=== PATIENT | male | born 1995 | race Caucasian/White ===

== ENCOUNTER 2018-11-16 08:03 | Emergency (ER) | payer SELFPAY ==
[~2018-11-16] VITALS: Ht 188 cm; Wt 76.7 kg
--- OUTSIDE RECORDS SUMMARY | 2018-11-16 08:09 | XMS REPORT | Continuity of Care Document ---
Author Organization Unknown Address Unknown Allergies There is no data. Medications There is no data. Problems There is no data. Procedures There is no data. Results There is no data. Encounters ACCT No. Visit Date/Time Discharge Status Pt. Type Provider Facility Loc./Unit Complaint [id number] 11/16/2018 07:10:00 ACT Outpatient BAKARI WANG [facility] IN [facility]
--- NOTE | 2018-11-16 08:27 | ED Integumentary General ---
General Chief Complaint: Skin/Wound Problems Stated Complaint: PT SAYS HE HAS AN INFECTED HAIR ON HIS FACE Nursing Triage Note: PT REPORTS HE HAS AN INFECTED HAIR ON THE LEFT LOWER SIDE OF HIS JAW. HX OF MRSA. Source: patient Exam Limitations: no limitations History of Present Illness Date Seen by Provider: Nov 16, 2018 Time Seen by Provider: 08:21 Initial Comments Patient complains of infected joiner hair left jaw for 2-3 days. It was draining pus but not anymore. He was seen at urgent care clinic and referred here. Allergies and Home Medications Home Medications Sulfamethoxazole/Trimethoprim 1 Each Tablet, 1 EACH PO BID Prescribed by: MARIBETH BRADSHAW on 11/16/18 0831 Patient Home Medication List Home Medication List Reviewed: Yes Review of Systems Review of Systems Constitutional: no symptoms reported Respiratory: no symptoms reported Cardiovascular: no symptoms reported Musculoskeletal: no symptoms reported Skin: see HPI All Other Systems Reviewed Negative Unless Noted: Yes Past Nlxckbg-Fubihc-Codoha Hx Patient Social History Alcohol Use: Rarely Uses Recreational Drug Use: No Smoking Status: Never a Smoker 2nd Hand Smoke Exposure: No Recent Foreign Travel: No Contact w/Someone Who Travel: No Recent Infectious Disease Expo: No Recent Hopitalizations: No Physical Abuse: No Sexual Abuse: No Mistreated: No Fear: No Seasonal Allergies Seasonal Allergies: No Past Medical History Surgeries: No Respiratory: No Cardiac: No Neurological: No Genitourinary: No Gastrointestinal: No Musculoskeletal: No Endocrine: No HEENT: No Cancer: No Psychosocial: No Integumentary: No Blood Disorders: No Physical Exam Vital Signs Vital Signs - First Documented 11/16/18 11/16/18 08:14 08:32 Temp 98.0 Pulse 85 Resp 18 B/P (MAP) 144/58 (86) Pulse Ox 98 O2 Delivery Room Air Capillary Refill : Less Than 3 Seconds General Appearance: WD/WN, no apparent distress Neck: supple Cardiovascular: regular rate, rhythm Respiratory: lungs clear Extremities: normal range of motion Neurologic/Psychiatric: alert, normal mood/affect Skin: normal color, warm/dry, other (tender red indurated mass left lower jaw.) Procedures/Interventions I&D : Site: left lower jaw Blade Size: 11 Progress Area of maximum fluctuance was anesthetized with one percent lidocaine. A small stab incision with an 11 blade needle yielded 2-3 mL of pus. Progress/Results/Core Measures Results/Orders Vital Signs/I&O 11/16/18 11/16/18 08:14 08:32 Temp 98.0 98.0 Pulse 85 85 Resp 18 18 B/P (MAP) 144/58 (86) 144/54 (84) Pulse Ox 98 O2 Delivery Room Air Room Air Blood Pressure Mean: 86 Departure Impression Primary Impression: Abscess Disposition: 01 HOME, SELF-CARE Condition: Stable Departure-Patient Inst. Decision time for Depature: 08:30 Referrals: NO,LOCAL PHYSICIAN (PCP) Primary Care Physician Patient Instructions: Abscess Incision and Drainage (DC) Add. Discharge Instructions: Warm compresses to the chin. Take antibiotics as prescribed. All discharge instructions reviewed with patient and/or family. Voiced understanding. Scripts Sulfamethoxazole/Trimethoprim (Bactrim Ds Tablet) 1 Each Tablet 1 EACH PO BID, #14 TAB Prov: MARIBETH BRADSHAW MD 11/16/18 MARIBETH BRADSHAW MD Nov 16, 2018 08:27
[2018-11-16] MEDS ORDERED: SULF1TAB35 PO (08:31)
[2018-11-16 08:32] VITALS: BP 144/54
== END 2018-11-16 08:32 | disposition home or self-care (01) ==
LOC: EDUNIT# 08:03 → ER FS 08:06
DX: L02.01 Cutaneous abscess of face (principal)
CPT/HCPCS: 99282

== ENCOUNTER 2019-02-23 09:36 | Emergency (ER) | payer SELFPAY, OTHER | END 2019-02-23 10:19 | disposition home or self-care (01) | LOC: ER FS 09:36 ==

== ENCOUNTER 2019-11-11 01:01 | Emergency (ER) | payer SELFPAY ==
[~2019-11-11] VITALS: Ht 188 cm; Wt 63.5 kg
[~2019-11-11 01:01] MED LIST: SULF1TAB35 PO
--- OUTSIDE RECORDS SUMMARY | 2019-11-11 01:10 | XMS REPORT | Continuity of Care Document ---
Author Organization Unknown Address Unknown Phone Unavailable Allergies Active Description Code Type Severity Reaction Onset Reported/Identified Relationship to Patient Clinical Status Yes amoxicillin [id number] Drug Aller gy Mild rash 02/23/2019 Yes No Allergy Information Available [id number] Drug Allergy Unknown N/A 019 Medications There is no data. Problems Date Dx Coded Attending Type Code Diagnosis Diagnosed By 11/16/2018 LEEANN LUI, MARIBETH Kinney Ot L02. 01 CUTANEOUS ABSCESS OF FACE 11/21/2018 MARIBETH BRADSHAW MD Ot L02. 01 CUTANEOUS ABSCESS OF FACE Procedures There is no data. Results There is no data. Encounters ACCT No. Visit Date/Time Discharge Status Pt. Type Provider Facility Loc./Unit Complaint [id number] 11/16/2018 07:10:00 11/16/2018 23:59: 59 CLS [facility] [id number] 02/23/2019 09:36:00 019 10:19:00 DIS Emergency YASMIN LUI, MILES Leo [facility] ER FS RT FOOT MARYJANE N [id number] 11/16/2018 08:06:00 019 08:32:00 DIS Emergency MARIBETH BRADSHAW MD [facility] ER FS PT SAYS HE HAS AN INFEC JOSÉ LUIS HAIR ON HIS FACE
[2019-11-11 01:15] VITALS: BP 122/77
[2019-11-11] MEDS ORDERED: AMOX-358 PO (01:28)
--- NOTE | 2019-11-11 01:29 | ED Integumentary General ---
General Chief Complaint: Bite-Animal/Human/Insect Stated Complaint: DOG BITE TO RIGHT HAND Nursing Triage Note: PT AMBULATE TO ROOM FS01 WITH C/O DOG BITE. PT STATES HE WAS BITTEN BY HIS OWN DOG AND THAT THE DOG IS CURRENT ON ALL VACCINATIONS. Source: patient Exam Limitations: no limitations History of Present Illness Date Seen by Provider: Nov 11, 2019 Time Seen by Provider: 01:20 Initial Comments 24-year-old male presents with a dog bite to the base of his right thumb. Patient reports that after around 8 PM in the evening. Patient has not injuries. Patient reports a dog is up-to-date and current on vaccinations. Patient's last tetanus was about a year and a half ago. Patient has 2 small puncture wounds otherwise no other injury. He has full range of motion of the thumb. Allergies and Home Medications Allergies Coded Allergies: amoxicillin (Unverified Adverse Reaction, Mild, rash, 02/23/19) Obtained from [employer] records Home Medications Amoxicillin/Potassium Clav 1 Each Tablet, 1 EACH PO BID Prescribed by: PADMINI TORRES on 11/11/19 0128 Patient Home Medication List Home Medication List Reviewed: Yes Review of Systems Review of Systems Constitutional: no symptoms reported EENTM: no symptoms reported Respiratory: no symptoms reported Cardiovascular: no symptoms reported Genitourinary: no symptoms reported Musculoskeletal: see HPI Skin: see HPI Past Eysqpoj-Hzcvrb-Ezrjrq Hx Past Med/Social Hx: Reviewed Nursing Past Med/Soc Hx Patient Social History Alcohol Use: Rarely Uses Recreational Drug Use: No Type Used: Cigarettes, Smokeless Tobacco Former Smoker, Quit: Dec 03, 2016 2nd Hand Smoke Exposure: No Recent Foreign Travel: No Contact w/Someone Who Travel: No Recent Infectious Disease Expo: No Recent Hopitalizations: No Physical Abuse: No Sexual Abuse: No Mistreated: No Fear: No Immunizations Up To Date Tetanus Booster (TDap): Less than 5yrs Seasonal Allergies Seasonal Allergies: No Past Medical History Surgeries: No Respiratory: Yes Asthma Cardiac: No Neurological: No Sexually Transmitted Disease: Yes (Exposure to Herpes, Hx Trichomonas) Genitourinary: No Gastrointestinal: No Musculoskeletal: No Endocrine: No HEENT: No Cancer: No Psychosocial: Yes ADD/ADHD Integumentary: No Blood Disorders: No Physical Exam Vital Signs Vital Signs - First Documented 11/11/19 01:15 Temp 36.4 Pulse 85 Resp 18 B/P (MAP) 122/77 (92) O2 Delivery Room Air Capillary Refill : Less Than 3 Seconds General Appearance: WD/WN, no apparent distress Cardiovascular: normal peripheral pulses, regular rate, rhythm Respiratory: no respiratory distress, no accessory muscle use Gastrointestinal: non tender, soft Neurologic/Psychiatric: alert, normal mood/affect, oriented x 3 Skin Problem Location: upper extremities (right hand base of the thumb) Skin Problem Character: other (two nonsuturable puncture wound) Progress/Results/Core Measures Results/Orders My Orders Orders - TYLER TORRESR L DO Hand 2 View Right (11/11/19 01:22) Vital Signs/I&O 11/11/19 01:15 Temp 36.4 Pulse 85 Resp 18 B/P (MAP) 122/77 (92) O2 Delivery Room Air Blood Pressure Mean: 92 Diagnostic Imaging Diagonstic Imaging: Xray Plain Films/CT/US/NM/MRI: hand Comments no acute finding Reviewed: Reviewed by Me Departure Impression Primary Impression: Dog bite Qualified Codes: W54.0XXA - Bitten by dog, initial encounter Disposition: HOME, SELF-CARE Condition: Stable Departure-Patient Inst. Referrals: NO,LOCAL PHYSICIAN (PCP/Family) Primary Care Physician Patient Instructions: Animal Bites (DC) Add. Discharge Instructions: Emergency department focuses on treating and ruling out life-threatening diseases. Whenever possible, a diagnosis is given. However, most patients are given an impression based on their history, physical exam, and workup during your brief time in the ER. Information about probable diagnosis and other educational material has been provided. Please take the time to read and understand this information. It is very important that you follow up with a physician as discussed during the visit today. Failure to adhere to your follow-up instructions may lead to severe disability, injury, or so please make sure to keep your appointments or obtain one as requested. Please keep in mind the emergency department is not designed to your primary care or "family doctor" and nonurgent issues are best evaluated by an outpatient physician All discharge instructions reviewed with patient and/or family. Voiced understanding. Scripts Amoxicillin/Potassium Clav (Augmentin 875-125 Tablet) 1 Each Tablet 1 EACH PO BID, #14 TAB 0 Refills Prov: TYLER TORRESR L DO 11/11/19 TYLER TORRESR L DO Nov 11, 2019 01:28
--- NOTE | 2019-11-11 06:32 | Diagnostic Imaging Report ---
CLINICAL HISTORY: Dog bite. COMPARISON: None. TECHNIQUE: 2 views of the right hand. FINDINGS: There is no acute fracture or dislocation of the right hand. Alignment is anatomic. The imaged joint spaces are preserved. There is soft tissue edema involving the right 2nd digit. No radiopaque foreign bodies are visualized in the right hand. IMPRESSION: 1. No acute fracture or dislocation of the right hand. No radiopaque foreign bodies. Dictated by: Dictated on workstation # [id number]
== END 2019-11-11 01:47 | disposition home or self-care (01) ==
LOC: EDUNIT# 01:01 → ER FS 01:06
DX: S61.431A Puncture wound without foreign body of right hand, initial encounter (principal); Z88.0 Allergy status to penicillin; Z87.891 Personal history of nicotine dependence; W54.0XXA Bitten by dog, initial encounter
CPT/HCPCS: 73120

== ENCOUNTER 2019-11-26 22:01 | Emergency (ER) | payer OTHER ==
[~2019-11-26] VITALS: Ht 188 cm; Wt 74.1 kg
[~2019-11-26 22:01] MED LIST changes: +AMOX-358 PO
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
--- OUTSIDE RECORDS SUMMARY | 2019-11-26 22:06 | XMS REPORT | Continuity of Care Document ---
Author Organization Unknown Address Unknown Phone Unavailable Allergies Active Description Code Type Severity Reaction Onset Reported/Identified Relationship to Patient Clinical Status Yes amoxicillin [id number] Drug Aller gy Mild rash 02/23/2019 Yes No Allergy Information Available [id number] Drug Allergy Unknown N/A 019 Medications There is no data. Problems Date Dx Coded Attending Type Code Diagnosis Diagnosed By 11/16/2018 LEEANN LUI, MARIBETH Kinney Ot L02. 01 CUTANEOUS ABSCESS OF FACE 11/21/2018 LEEANN LUI, MARIBETH Kinney Ot L02. 01 CUTANEOUS ABSCESS OF FACE 02/23/2019 YASMIN LUI, DARSHAN kelly S99.921A UNSPECIFIED INJURY OF RIGHT FOOT, INITIA 11/13/2019 TORRES DO, PAMDINI L Ot S61.431A PUNCTURE WOUND W/O FOREIGN BODY OF RIGHT 11/13/2019 TORRES DO, PADMINI L Ot W54.0XXA BITTEN BY DOG, INITIAL ENCOUNTER 11/13/2019 TORRES DO, PADMINI L Ot Z87.8 91 PERSONAL HISTORY OF NICOTINE DEPENDENCE 11/13/2019 TORRES DO, PADMINI L Ot Z88.0 ALLERGY STATUS TO PENICILLIN 11/17/2019 TORRES DO, PADMINI L Ot S61.431A PUNCTURE WOUND W/O FOREIGN BODY OF RIGHT 11/17/2019 TORRES DO, PADMINI L Ot W54.0XXA BITTEN BY DOG, INITIAL ENCOUNTER 11/17/2019 TORRES DO, PADMINI L Ot Z87.8 91 PERSONAL HISTORY OF NICOTINE DEPENDENCE 11/17/2019 TORRES DO, PADMINI L Ot Z88.0 ALLERGY STATUS TO PENICILLIN Procedures There is no data. Results There is no data. Encounters ACCT No. Visit Date/Time Discharge Status Pt. Type Provider Facility Loc./Unit Complaint [id number] 11/16/2018 07:10:00 11/16/2018 23:59: 59 [facility] Outpatient BAKARI WANG [facility] IN [facility] [id number] 11/11/2019 01:06:00 01:47:00 DIS Outpatient BRIAN SALAS, PADMINI Jeff [facility] ER FS DOG BITE TO RIGHT HAND [id number] 02/23/2019 09:36:00 019 10:19:00 DIS Emergency YASMIN LUI, MILES Leo [facility] ER FS RT FOOT MARYJANE N [id number] 11/16/2018 08:06:00 019 08:32:00 DIS Emergency LEEANN LUI, MARIBETH Kinney [facility] ER FS PT SAYS HE HAS AN INFEC JOSÉ LUIS HAIR ON HIS FACE
[2019-11-26 22:09] VITALS: BP 121/73
== END 2019-11-26 22:15 | disposition home or self-care (01) ==
LOC: EDUNIT# 22:01 → ER FS 22:02
DX: Z04.1 Encounter for examination and observation following transport accident (principal); Z88.0 Allergy status to penicillin
CPT/HCPCS: 99283

== ENCOUNTER 2020-08-11 19:58 | Emergency (ER) | payer OTHER ==
[~2020-08-11] VITALS: Ht 187.9 cm; Wt 79.4 kg
[2020-08-11 20:05] VITALS: BP 127/74
[2020-08-11] MEDS ORDERED: AZIT250T PO (20:39)
[2020-08-11] MEDS ORDERED: ACETAMINOPHEN 325 MG TABLET PO ONE (20:45)
--- NOTE | 2020-08-11 20:46 | ED General ---
General Chief Complaint: Head/Cervical Problems Stated Complaint: HEADACHE,ABD PAIN Nursing Triage Note: PT AMBULATE TO ROOM FS02 WITH C/O HEADACHE STARTING YESTERDAY. PT STATES HE BELIEVES IT IS A SINUS INFECTION. PT REPORTS ABD PAIN YESTERDAY THAT WENT AWAY AFTER HE ATE AND SLEPT. PT REPORTS HE HAS NOT TAKEN ANYTHING FOR THE PAIN. Nursing Sepsis Screen: No Definite Risk Source of Information: Patient History of Present Illness Date Seen by Provider: Aug 11, 2020 Time Seen by Provider: 20:20 Initial Comments Patient is a 24-year-old male with history of schizophrenia who presents with intermittent headache with sinus congestion and pain since yesterday. Patient reports occasional cough and sinus drainage. States he has had intermittent abdominal pain which has resolved along with the headache prior to ED arrival. Patient is compliant with schizophrenic medications. No reported hallucinations delusions or paranoia. No other acute symptoms or complaints. Patient does require work note after missing today. Timing/Duration: 24 Hours Severity: Mild Modifying Factors: improves with Rest Associated Systoms: Other Allergies and Home Medications Allergies Coded Allergies: amoxicillin (Unverified Adverse Reaction, Mild, rash, 02/23/19) Obtained from [employer] records Home Medications Amoxicillin/Potassium Clav 1 Each Tablet, 1 EACH PO BID Prescribed by: PADMINI TORRES on 11/11/19127 Azithromycin 250 Mg Tablet, 250 MG PO UD TAKE 2 TABLETS TODAY, THEN TAKE 1 TABLET DAILY FOR 4 MORE DAYS Prescribed by: SMITA DENISE on 08/11/202038 Patient Home Medication List Home Medication List Reviewed: Yes Review of Systems Review of Systems Constitutional: no symptoms reported EENTM: see HPI Respiratory: see HPI Cardiovascular: see HPI Gastrointestinal: see HPI Genitourinary: see HPI Musculoskeletal: see HPI Skin: see HPI Psychiatric/Neurological: See HPI Hematologic/Lymphatic: See HPI Immunological/Allergic: see HPI All Other Systems Reviewed Negative Unless Noted: Yes Past Skeysxk-Awleby-Dkdrtc Hx Past Med/Social Hx: Reviewed Nursing Past Med/Soc Hx Patient Social History Alcohol Use: Denies Use Recreational Drug Use: No Smoking Status: Former Smoker Type Used: Cigarettes, Smokeless Tobacco Former Smoker, Quit: Dec 03, 2016 2nd Hand Smoke Exposure: No Recent Foreign Travel: No Contact w/Someone Who Travel: No Recent Infectious Disease Expo: No Recent Hopitalizations: No Physical Abuse: No Sexual Abuse: No Mistreated: No Fear: No Immunizations Up To Date Tetanus Booster (TDap): Less than 5yrs Seasonal Allergies Seasonal Allergies: No Past Medical History Surgeries: No Respiratory: Yes Asthma Cardiac: No Neurological: No Sexually Transmitted Disease: Yes (Exposure to Herpes, Hx Trichomonas) Genitourinary: No Gastrointestinal: No Musculoskeletal: No Endocrine: No HEENT: No Cancer: No Psychosocial: Yes ADD/ADHD Integumentary: No Blood Disorders: No Physical Exam Vital Signs Vital Signs - First Documented 08/11/20 20:05 Temp 36.5 Pulse 84 Resp 17 B/P (MAP) 127/74 (91) O2 Delivery Room Air Capillary Refill : Less Than 3 Seconds Height, Weight, BMI Height: 6'2.00" Weight: 170lbs. oz. 77.335453pi; 22.00 BMI Method:Stated General Appearance: No Apparent Distress Focused Exam Sepsis Stage: Ruled Out Progress/Results/Core Measures Suspected Sepsis Recent Fever Within 48 Hours: No Infection Criteria Present: None New/Unexplained Altered Menta: No Sepsis Screen: No Definite Risk SIRS Temperature: Pulse: 84 Respiratory Rate: 17 Blood Pressure 127 /74 Mean: 91 Results/Orders My Orders Orders - SMITA DENISE DO Acetaminophen Tablet/Caplet (Tylenol T (08/11/20 20:45) Medications Given in ED Current Medications Medications Dose Ordered Sig/Isabel Route Start Time Stop Time Status Last Admin Dose Admin Acetaminophen 650 mg ONCE ONCE PO 08/11/20 20:45 08/11/20 20:46 DC 08/11/20 20:43 650 MG Vital Signs/I&O 08/11/20 20:05 Temp 36.5 Pulse 84 Resp 17 B/P (MAP) 127/74 (91) O2 Delivery Room Air Capillary Refill : Less Than 3 Seconds Blood Pressure Mean: 91 Departure Impression Primary Impression: Sinus headache Disposition: HOME, SELF-CARE Condition: Stable Departure-Patient Inst. Referrals: NO,LOCAL PHYSICIAN (PCP/Family) Primary Care Physician Patient Instructions: Headache, Adult Add. Discharge Instructions: Please take newly prescribed medications as directed and follow-up with your PCP in 7-10 days if symptoms persist. All discharge instructions reviewed with patient and/or family. Voiced understanding. Scripts Azithromycin (Zithromax) 250 Mg Tablet 250 MG PO UD, #6 TAB TAKE 2 TABLETS TODAY, THEN TAKE 1 TABLET DAILY FOR 4 MORE DAYS Prov: SMITA DENISE DO 08/11/20 Work/School Note: Work Release Form Date Seen in the Emergency Department: Aug 11, 2020 Return to Work: Aug 12, 2020 Restrictions: No Restrictions SMITA DENISE DO Aug 11, 2020 20:46
== END 2020-08-11 20:55 | disposition home or self-care (01) ==
LOC: EDUNIT# 19:58 → ER FS 20:00
DX: G44.89 Other headache syndrome (principal); R09.81 Nasal congestion; R05 Cough; F20.9 Schizophrenia, unspecified; Z87.891 Personal history of nicotine dependence; Z88.1 Allergy status to other antibiotic agents
CPT/HCPCS: 99283

== ENCOUNTER 2021-12-21 05:08 | Emergency (ER) | payer OTHER ==
[~2021-12-21] VITALS: Ht 187.9 cm; Wt 72.0 kg
[~2021-12-21 05:08] MED LIST changes: +AZIT250T PO; -SULF1TAB35 PO; +SULF1TAB38 PO
--- NOTE | 2021-12-21 05:55 | ED EENT ---
History of Present Illness General Chief Complaint: Oral/Throat Problems Stated Complaint: FEELS LIKE THROAT SWELLING/NAUSEA Nursing Triage Note: Pt c/o sore throat and stated "it feels like my throat is swelling." Pt reports multiple similar episodes since Aug. and has been seen at the Clinic but told it was a virus. Pt is speaking in full sentances and has even, unlabored respiration. VSS. Source: patient History of Present Illness Date Seen by Provider: December 21, 2021 Time Seen by Provider: 05:13 Initial Comments 26-year-old male presenting with complaints of nausea and feeling like his throat was swelling. He states since August he has had multiple episodes similar to this and been told that it has been strep throat or virus. He is having no difficulty breathing and is speaking with a normal voice. He is swallowing his own saliva without difficulty. He has had no vomiting but states he has some nausea. He reports having a bad taste in the back of his throat. He was at work tonight and felt like symptoms were getting worse so he left work to come be seen. He does use the same Work with a straw in it and states he is trying to clean it as best that he can but is not sure if that might be causing him to have recurrent infection. Timing/Duration: abrupt Severity: moderate Location: throat Prearrival Treatment: no prearrival treatment Associated Symptoms: No change in hearing, No cough, No drooling, No ear drainage, No facial pain/swelling, No fever, No malaise, No nasal congestion/drainage, No poor fluid intake, No poor solids intake, No sinus infection; sore throat (Hurts to swallow); No tooth pain, No voice change Allergies and Home Medications Allergies Coded Allergies: amoxicillin (Unverified Adverse Reaction, Mild, rash, 02/23/19) Obtained from [facility] records Patient Home Medication List Home Medication List Reviewed: Yes Amoxicillin/Potassium Clav (Augmentin 875-125 Tablet) 1 Each Tablet, 1 EACH PO BID Prescribed by: PADMINI TORRES on 11/11/19 012 Azithromycin (Zithromax) 250 Mg Tablet, 250 MG PO UD Prescribed by: SMITA DENISE on 08/11/202038 Azithromycin (Azithromycin) 250 Mg Tablet, 250 MG PO DAILY Prescribed by: COCO TRUONG on 12/21/21 0610 Review of Systems Review of Systems Constitutional: No chills, No fever Eyes: No Symptoms Reported Ears: No Symptoms Reported Nose: no symptoms reported Mouth: no symptoms reported Throat: pain (Painful swallowing), swelling (Sensation of swelling in his throat); denies hoarse, denies muffled; painful swallowing; denies difficulty with fluids Respiratory: No cough, No short of breath, No stridor, No wheezing Cardiovascular: no symptoms reported Gastrointestinal: nausea; No vomiting Musculoskeletal: no symptoms reported Skin: No rash Neurological: Denies Headache Past Ffgilhj-Lpdgsv-Qajhob Hx Patient Social History Tobacco Use?: No Use of E-Cig and/or Vaping dev: No Substance use?: No Alcohol Use?: No Pt feels they are or have been: No Immunizations Up To Date Tetanus Booster (TDap): Less than 5yrs Influenza Vaccine Up-to-Date: No; Not Current Seasonal Allergies Seasonal Allergies: No Past Medical History Surgery/Hospitalization HX: Strep throat, asthma Surgeries: No Respiratory: Yes Asthma Cardiac: No Neurological: No Sexually Transmitted 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 oz. [id number]; 20.00 BMI Method:Stated General Appearance: no apparent distress Eyes: bilateral eye PERRL, bilateral eye EOMI Ears: bilateral ear auricle normal, bilateral ear canal normal, bilateral ear TM normal Nose: normal inspection Mouth/Throat: No excessive drooling, No pharynx swelling, No tongue swollen, No tonsillar exudate, No tonsillar swelling; other (Mild erythema to posterior pharynx and small white tonsil stone to left upper posterior pharynx) Neck: non-tender, full range of motion, supple, normal inspection Cardiovascular: normal peripheral pulses, regular rate, rhythm Respiratory: chest non-tender, lungs clear, normal breath sounds, no respiratory distress, no accessory muscle use Neurologic/Psychiatric: alert, oriented x 3 Skin: normal color, warm/dry Progress/Results/Core Measures Results/Orders Lab Results Laboratory Tests Test 12/21/21 05:25 Range/Units Group A Streptococcus Screen NEGATIVE NEGATIVE My Orders Orders - COCO TRUONG MD Rapid Strep A Screen (12/21/21 05:23) Azithromycin Tablet (Zithromax Tablet) (12/21/21 06:11) Vital Signs/I&O 12/21/21 12/21/21 05:13 06:16 Temp 36.5 36.5 Pulse 90 90 Resp 17 17 B/P (MAP) 121/61 (81) 121/61 Pulse Ox 97 97 O2 Delivery Room Air Room Air Blood Pressure Mean: 81 Progress Progress Note #1: Progress Note Offered nausea medicine for his upset stomach but patient refused. Ordered rapid strep swab of his throat Progress Note #2: Progress Note Rapid strep swab is negative. Since he does have a bad taste in the back of his mouth and sensation of swelling as well as tonsil stone will order short course of antibiotics while culture is pending for strep. Encouraged him to consider getting a new cup and straw if he feels he can not clean the one that he has. Check with clinic for continued concerns or may need to see ENT Departure Impression Primary Impression: Tonsil stone Additional Impression: Acute sore throat Disposition: HOME, SELF-CARE Condition: Stable Departure-Patient Inst. Decision time for Depature: 06:10 Referrals: NO,LOCAL PHYSICIAN (PCP) Primary Care Physician [facility] Call [phone] to get follow up appointment Patient Instructions: Sore Throat, Adult ED Add. Discharge Instructions: Take the full course of antibiotics to treat for possible infection in your throat. Consider getting a new cup and straw for work if you feel like you cannot adequately clean the straw that you have. Try gargling with warm salt water. Put 1 teaspoon of salt in a cup of warm water and mix that together. Then gargle and spit the salt water solution out twice a day to help with recurrent sore throat and throat infections and tonsil stones (pieces of food that get stuck in the tonsil tissue and then look like small white or yellow spots on the tonsils). Check back with clinic if not improving or if having continued concerns. All discharge instructions reviewed with patient and/or family. Voiced understa nding. Scripts Azithromycin (Azithromycin) 250 Mg Tablet 250 MG PO DAILY for sore throat for 4 Days, #4 TAB 0 Refills Prov: COCO TRUONG MD 12/21/21 Work/School Note: Work Release Form Date Seen in the Emergency Department: December 21, 2021 Return to Work: December 22, 2021 Restrictions: No Restrictions COCO TRUONG MD December 21, 2021 05:55
[2021-12-21] MEDS ORDERED: AZIT250T12 PO (06:10)
[2021-12-21] MEDS ORDERED: AZITHROMYCIN 250 MG TAB (ZITHROMAX) PO STA (06:11)
[2021-12-21 06:16] VITALS: BP 121/61
== END 2021-12-21 06:16 | disposition home or self-care (01) ==
LOC: EDUNIT# 05:08 → ER FS 05:11
DX: J35.8 Other chronic diseases of tonsils and adenoids (principal); J02.9 Acute pharyngitis, unspecified
CPT/HCPCS: 87430; 99283

== ENCOUNTER 2022-10-15 09:00 | Emergency (ER) | payer OTHER ==
[~2022-10-15] VITALS: Ht 187 cm; Wt 81.0 kg
[~2022-10-15 09:00] MED LIST changes: +AZIT250T12 PO
[2022-10-15 09:11] VITALS: BP 131/76
[2022-10-15] MEDS ORDERED: DOXYCYCLINE 100 MG (VIBRAMYCIN) TABLET PO STA (09:35)
[2022-10-15] MEDS ORDERED: CEPHALEXIN 250 MG (KEFLEX) CAP PO STA (09:35)
--- NOTE | 2022-10-15 09:41 | ED General ---
General Chief Complaint: General Problems/Pain Stated Complaint: LT GROIN PAIN Nursing Triage Note: Patient complains of a pain in his lower left abd/groin - the pain is present only when he pushes on the area. He denies any known trauma or injury. Source of Information: Patient, Family Exam Limitations: No Limitations History of Present Illness Date Seen by Provider: Oct 15, 2022 Time Seen by Provider: 09:07 Initial Comments 26-year-old male with no pertinent past medical history coming in initially due to "groin issues". He states his nephew pushed on his left lower abdomen yesterday, and he noticed that the area was tender. Has continued to be tender through the night and today. He states he feels an area that slightly swollen. He was concerned he could have a hernia. Of note, he was diagnosed with potethan rutherfordy a staph infection last Sunday and has been on Bactrim. He states he is about out of the antibiotic and it does not seem to really be getting much better. He states there was an abscess and it has been slowly draining, but they did not drain at the walk-in clinic. Denies any fever, nausea, vomiting, diarrhea, focal weakness or numbness, or any other concerns. Having normal bowel movements and passing flatus. Denies any scrotal pain or penile discharge. Allergies and Home Medications Allergies Coded Allergies: amoxicillin (Unverified Adverse Reaction, Mild, rash, 02/23/19) Obtained from [facility] records Patient Home Medication List Home Medication List Reviewed: Yes Amoxicillin/Potassium Clav (Augmentin 875-125 Tablet) 1 Each Tablet, 1 EACH PO BID Prescribed by: PADMINI TORRES on 11/11/19 012 Azithromycin (Zithromax) 250 Mg Tablet, 250 MG PO UD Prescribed by: SMITA DENISE on 08/11/202038 Azithromycin (Azithromycin) 250 Mg Tablet, 250 MG PO DAILY Prescribed by: COCO TRUONG on 12/21/21 0610 Review of Systems Review of Systems Constitutional: No fever EENTM: no symptoms reported Respiratory: no symptoms reported Cardiovascular: no symptoms reported Gastrointestinal: see HPI Genitourinary: no symptoms reported Skin: see HPI Past Lhgchoa-Fbetpt-Jlxuos Hx Patient Social History Tobacco Use?: No Use of E-Cig and/or Vaping dev: No Substance use?: No Alcohol Use?: No Pt feels they are or have been: Unable to obtain Immunizations Up To Date Tetanus Booster (TDap): Less than 5yrs Seasonal Allergies Seasonal Allergies: No Past Medical History Surgery/Hospitalization HX: Strep throat, asthma Surgeries: No Respiratory: Yes Asthma Cardiac: No Neurological: No Sexually Transmitted Disease: 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 oz. [id number]; 23.00 BMI Method:Stated General Appearance: No Apparent Distress, WD/WN Eyes: Bilateral Eye Normal Inspection HEENT: PERRL/EOMI, Normal ENT Inspection, Pharynx Normal Neck: Full Range of Motion, Normal Inspection, Non Tender, Supple Respiratory: Chest Non Tender, Lungs Clear, Normal Breath Sounds, No Accessory Muscle Use, No Respiratory Distress Cardiovascular: Regular Rate, Rhythm, No Edema, Normal Peripheral Pulses Gastrointestinal: Normal Bowel Sounds, Non Tender, Soft; No Distended, No Guard ing Genital/Rectal: Other (Normal scrotum with no swelling or tenderness, no inguinal hernia felt, no penile discharge) Back: Normal Inspection, No CVA Tenderness Extremity: Normal Capillary Refill, Normal Inspection, Normal Range of Motion, Non Tender, No Calf Tenderness, No Pedal Edema Neurologic/Psychiatric: Alert, No Motor/Sensory Deficits Skin: Other (Abscess to the left buttock where it meets the flank with some mild cellulitis surrounding it, left groin with lymphadenopathy) Lymphatic: Inguinal Node Tender (L) Procedures/Interventions I&D : Site: Left flank/buttocks Blade Size: 11 Progress The area was cleaned with chlorhexidine, 4 cc of 2% lidocaine with epinephrine were infiltrated with a 27-gauge needle. A single stab incision was then made with an 11 blade with a moderate amount of purulent drainage. Covered in a dressing afterwards to keep blood from his pants. Patient tolerated the procedure well. Progress/Results/Core Measures Suspected Sepsis SIRS Temperature: Pulse: 80 Respiratory Rate: 16 Blood Pressure 131 /76 Mean: 94 Results/Orders My Orders Orders - AUDREY COY MD Wound Culture (10/15/22 09:20) Doxycycline Hyclate Tablet (Vibramycin T (10/15/22 09:35) Cephalexin Capsule (Keflex Capsule) (10/15/22 09:35) Vital Signs/I&O 10/15/22 09:11 Temp 36.4 Pulse 80 Resp 16 B/P (MAP) 131/76 (94) Pulse Ox 100 O2 Delivery Room Air Capillary Refill : Blood Pressure Mean: 94 Progress Note : Progress Note 26-year-old male with above history coming in due to "groin pain". ABCs were intact and vitals were stable on presentation. Differential includes testicular torsion versus hematoma versus small bowel obstruction versus incarcerated hernia versus abscess. On physical exam the patient does have an abscess in his left buttock/flank region with same side lymphadenopathy that is painful. He is on Bactrim, but clearly not covering it with the abscess present. An I&D was performed. We will switch him to Doxy and Keflex. A wound culture was sent. Departure Impression Primary Impression: Abscess Additional Impression: Inguinal lymphadenopathy Disposition: 01 HOME, SELF-CARE Condition: Stable Departure-Patient Inst. Decision time for Depature: 09:45 Referrals: NO,LOCAL PHYSICIAN (PCP/Family) Primary Care Physician Patient Instructions: Abscess Incision and Drainage ED, Lymphadenitis Add. Discharge Instructions: Your lymph nodes were swollen in your groin because of the infection not being treated as of yet. The antibiotics were not able to work previously with the abscess present, now that the abscess is gone, antibiotics will work. He will be on 2 different antibiotics for the next 10 days. Be sure to finish these antibiotics. We did a culture of the wound, meaning if the bacteria that grows out is resistant to any certain antibiotic, we will call you and change the antibiotic to a different one. Scripts Cephalexin (Cephalexin) 500 Mg Tablet 500 MG PO QID for 10 Days, #40 TAB Prov: AUDREY COY MD 10/15/22 Doxycycline Hyclate (Doxycycline Hyclate) 100 Mg Tablet 100 MG PO BID for 10 Days, #20 TAB 0 Refills Prov: AUDREY COY MD 10/15/22 Work/School Note: Work Release Form Date Seen in the Emergency Department: Oct 15, 2022 Return to Work: Oct 16, 2022 Restrictions: No Restrictions AUDREY COY MD Oct 15, 2022 09:41
[2022-10-15] MEDS ORDERED: CEPH500T PO (09:42)
[2022-10-15] MEDS ORDERED: DOXY100T2 PO (09:42)
== END 2022-10-15 09:47 | disposition home or self-care (01) ==
LOC: EDUNIT# 09:00 → ER FS 09:01
DX: L02.211 Cutaneous abscess of abdominal wall (principal); R59.0 Localized enlarged lymph nodes; Z88.1 Allergy status to other antibiotic agents; Z28.310 Unvaccinated for COVID-19
CPT/HCPCS: 87070; 87077; 87205; 99283